=== PATIENT | male | born 1990 | race Caucasian/White ===

== ENCOUNTER 2019-10-24 20:18 | Emergency (ER) | payer SELFPAY ==
[~2019-10-24] VITALS: Ht 185.4 cm; Wt 83.9 kg
[2019-10-24 20:31] VITALS: BP 116/67
[2019-10-24] MEDS ORDERED: CEPH-264 PO (20:45)
--- NOTE | 2019-10-24 20:45 | PHYS DOC ---
Adult General Chief Complaint Chief Complaint: ABSCESS HPI HPI Patient is a 29 year old male who presents with 4 days of a left lower abdomen abscess that is open draining. Patient states he has been pushing and squeezing on it. Patient is educated not to do that. Patient denies fevers or body aches. Patient rates his pain 7 out of 10. States it is tender. (EMBER IZQUIERDO APRN) Review of Systems Review of Systems Constitutional: Denies fever or chills [] Eyes: Denies change in visual acuity, redness, or eye pain [] HENT: Denies nasal congestion or sore throat [] Respiratory: Denies cough or shortness of breath [] Cardiovascular: No additional information not addressed in HPI [] GI: Denies abdominal pain, nausea, vomiting, bloody stools or diarrhea [] : Denies dysuria or hematuria [] Musculoskeletal: Denies back pain or joint pain [] Integument: Abscess on abdomen. Denies rash or skin lesions [] Neurologic: Denies headache, focal weakness or sensory changes [] Endocrine: Denies polyuria or polydipsia [] All other systems were reviewed and found to be within normal limits, except as documented in this note. (EMBER IZQUIERDO APRN) Physical Exam Physical Exam Constitutional: Well developed, well nourished, no acute distress, non-toxic appearance. [] HENT: Normocephalic, atraumatic, bilateral external ears normal, oropharynx moist, no oral exudates, nose normal. [] Eyes: PERRLA, EOMI, conjunctiva normal, no discharge. [] Neck: Normal range of motion, no tenderness, supple, no stridor. [] Cardiovascular:Heart rate regular rhythm, no murmur [] Lungs & Thorax: Bilateral breath sounds clear to auscultation [] Abdomen: Bowel sounds normal, soft, no tenderness, no masses, no pulsatile masses. [] Skin: Warm, dry, Left lower abdomen abscess erythema, no rash. [] Back: No tenderness, no CVA tenderness. [] Extremities: No tenderness, no cyanosis, no clubbing, ROM intact, no edema. [] Neurologic: Alert and oriented X 3, normal motor function, normal sensory function, no focal deficits noted. [] Psychologic: Affect normal, judgement normal, mood normal. [] (EMBER IZQUIERDO APRN) Current Patient Data Vital Signs Vital Signs Date Time Temp Pulse Resp B/P (MAP) Pulse Ox O2 Delivery O2 Flow Rate FiO2 10/24/19 20:31 98.4 88 19 116/67 (83) 97 Room Air 98.4 (EDIE CARDENAS DO) EKG EKG [] (EMBER IZQUIERDO APRN) Radiology/Procedures Radiology/Procedures [] (EMBER IZQUIERDO APRN) Course & Med Decision Making Course & Med Decision Making Abscess is hard, nonraised, draining baseball size oval-shaped abscess that is open. The center is draining purulent fluid. There is no black areas to the wound. Afebrile. vital signs are within normal limits. Alert and oriented. Speaks in full clear sentences. Ambulatory with steady gait. Patient is given a antibiotic and told to follow up here in 48 hours or with his primary care for a wound recheck. The area is outlined with a black skin marker. Patient is stable and non ill appearing. [] (EMBER IZQUIERDO APRN) Dragon Disclaimer Dragon Disclaimer This electronic medical record was generated, in whole or in part, using a voice recognition dictation system. (EMBER IZQUIERDO APRN) Departure Departure Impression: Primary Impression: Abscess Disposition: 01 HOME, SELF-CARE Condition: STABLE Patient Instructions: Abscess Additional Instructions: Follow up with primary care or return to the ED in 48 hours for a wound recheck. Do not squeeze or push on abscess. Use warm compresses 20 minutes on and 20 minutes off. Take medication as prescribed. Scripts Cephalexin (KEFLEX) 500 Mg Capsule 1 CAP PO TID for 10 Days, #30 CAP 0 Refills Prov: EMBER IZQUIERDO APRN 10/24/19 Attending Signature Attending Signature I have reviewed the PA/POULTRY PINNER's note and plan of care. I was available for consultation as needed during the patient's visit in the emergency department. I agree with the clinical impression, plan, and disposition. (EDIE CARDENAS DO) EMBER IZQUIERDO APRN Oct 24, 2019 20:45 EDIE CARDENAS DO Oct 25, 2019 01:01
== END 2019-10-24 21:06 | disposition home or self-care (01) ==
LOC: ER 20:18
DX: K65.1 Peritoneal abscess (principal)
CPT/HCPCS: 99283

== ENCOUNTER 2020-07-13 16:09 | Emergency (ER) | payer SELFPAY ==
[~2020-07-13] VITALS: Ht 185.4 cm; Wt 81.8 kg
[~2020-07-13 16:09] MED LIST: CEPH-264 PO
[2020-07-13] MEDS ORDERED: IV NORMAL SALINE 1000ML BAG 1,000 ML IV ONE (16:30)
--- NOTE | 2020-07-13 16:37 | PHYS DOC ---
Past Medical History Past Medical History: No Pertinent History Past Surgical History: No Surgical History Smoking Status: Former Smoker Alcohol Use: Heavy Drug Use: Marijuana General Adult EDM: Chief Complaint: ABDOMINAL PAIN HPI: HPI: Patient is a 30 year old male who presented to ER today for evaluation of right upper quad abdominal pain for about a week. Patient says he has been drinking heavily daily, however he stopped drinking last week. Patient denies any nausea vomiting, denies any cough or fever. Patient denies any frequency or urinary urgency. Patient denies any history of kidney stone. Review of Systems: Review of Systems: Constitutional: Denies fever or chills. [] Eyes: Denies change in visual acuity. [] HENT: Denies nasal congestion or sore throat. [] Respiratory: Denies cough or shortness of breath. [] Cardiovascular: Denies chest pain or edema. [] GI: Positive for abdominal pain, no nausea vomiting, no diarrhea. : Denies dysuria. [] Musculoskeletal: Denies back pain or joint pain. [] Integument: Denies rash. [] Neurologic: Denies headache, focal weakness or sensory changes. [] Endocrine: Denies polyuria or polydipsia. [] Lymphatic: Denies swollen glands. [] Psychiatric: Denies depression or anxiety. [] Heart Score: Risk Factors: Risk Factors: DM, Current or recent (<one month) smoker, HTN, HLP, family history of CAD, obesity. Risk Scores: Score 0 - 3: 2.5% MACE over next 6 weeks - Discharge Home Score 4 - 6: 20.3% MACE over next 6 weeks - Admit for Clinical Observation Score 7 - 10: 72.7% MACE over next 6 weeks - Early Invasive Strategies Current Medications: Current Medications Medications (Trade) Dose Ordered Sig/Ronald Start Time Stop Time Status Last Admin Dose Admin Sodium Chloride 1,000 ml @ 1,000 mls/hr 1X ONCE 07/13/20 16:30 07/13/20 17:29 UNV Physical Exam: PE: Constitutional: Well developed, well nourished, no acute distress, non-toxic appearance. [] HENT: Normocephalic, atraumatic, bilateral external ears normal, oropharynx moist, no oral exudates, nose normal. [] Eyes: PERRLA, EOMI, conjunctiva normal, no discharge. [] Neck: Normal range of motion, no tenderness, supple, no stridor. [] Cardiovascular:Heart rate regular rhythm, no murmur [] Lungs & Thorax: Bilateral breath sounds clear to auscultation [] Abdomen: Bowel sounds normal, soft, There is tenderness to palpation AT RUQ, NO REBOUND, NO GUARDING, no masses, no pulsatile masses. [] Skin: Warm, dry, no erythema, no rash. [] Back: No tenderness, no CVA tenderness. [] Extremities: No tenderness, no cyanosis, no clubbing, ROM intact, no edema. [] Neurologic: Alert and oriented X 3, normal motor function, normal sensory fun ction, no focal deficits noted. [] Psychologic: Affect normal, judgement normal, mood normal. [] Current Patient Data: Labs: Laboratory Tests Test 07/13/20 16:50 Sodium Level 142 mmol/L Potassium Level 3.8 mmol/L Chloride Level 103 mmol/L Carbon Dioxide Level 33 mmol/L Anion Gap 6 Blood Urea Nitrogen 8 mg/dL Creatinine 0.9 mg/dL Estimated GFR (Cockcroft-Gault) 100.5 BUN/Creatinine Ratio 9 Glucose Level 71 mg/dL Calcium Level 9.1 mg/dL Total Bilirubin 0.3 mg/dL Aspartate Amino Transf (AST/SGOT) 19 U/L Alanine Aminotransferase (ALT/SGPT) 14 U/L Alkaline Phosphatase 74 U/L Total Protein 7.0 g/dL Albumin 3.8 g/dL Albumin/Globulin Ratio 1.2 Lipase 145 U/L Ethyl Alcohol Level < 10 mg/dL Current Medications Medications (Trade) Dose Ordered Sig/Ronald Route PRN Reason Start Time Stop Time Status Last Admin Dose Admin Sodium Chloride 1,000 ml @ 1,000 mls/hr 1X ONCE IV 07/13/20 16:30 07/13/20 17:29 DC 07/13/20 16:30 Iohexol (Omnipaque 300 Mg/ml) 75 ml 1X ONCE IV 07/13/20 18:00 07/13/20 18:01 DC Info (CONTRAST GIVEN -- Rx MONITORING) 1 each PRN DAILY PRN MC SEE COMMENTS 07/13/20 18:00 07/15/20 17:59 EKG: EKG: [] Radiology/Procedures: Radiology/Procedures: [][facility] [address] [place] [address] IMAGING REPORT Signed PATIENT: ALEXA ANDREW ACCOUNT: [id number] : 1990 LOCATION: ER AGE: 30 SEX: M EXAM STATUS: PRE ER ORD. PHYSICIAN: IVON RIZO DO REASON: RUQ ABDOMINAL PAIN PROCEDURE: ABDOMEN LTD INDICATION : Reason: RUQ ABDOMINAL PAIN / Spl. Instructions: / History: COMPARISON: None TECHNIQUE: Multiple ultrasound images obtained through the abdomen in grayscale and color. FINDINGS: Liver: Borderline echogenic Gallbladder: Contracted appearance. IVC: Partially distended at level of liver. Common Bile Duct: Not dilated. Pancreas: Limited evaluation secondary to bowel gas obscuring. Right Kidney: No hydronephrosis. IMPRESSION: * Gallbladder is contracted without common bile duct dilation or definitive stones but there is some limitation of the gallbladder secondary to contraction Electronically signed by: Juan Simpson MD (07/13/2020 5:09 PM) [id number] DICTATED and SIGNED BY: JUAN SIMPSON MD DATE: 07/13/20 1709 Course & Med Decision Making: Course & Med Decision Making Pertinent Labs and Imaging studies reviewed. (See chart for details) Patient is a 30-year-old male coming in with right-sided abdominal pain, will come back normal, ultrasound of Gallbladder come back normal as well, endorsed patient to Dr. Mclain at shift change, pending CT scan Dragon Disclaimer: Albina Disclaimer: This electronic medical record was generated, in whole or in part, using a voice recognition dictation system. Departure Departure Impression: Primary Impression: Abdominal pain Disposition: 01 HOME, SELF-CARE Condition: IMPROVED Referrals: NO PCP (PCP) Justicifation of Admission Dx: Justifications for Admission: Justification of Admission Dx: N/A IVON RIZO DO Jul 13, 2020 16:37
--- NOTE | 2020-07-13 17:12 | RAD ---
INDICATION : Reason: RUQ ABDOMINAL PAIN / Spl. Instructions: / History: COMPARISON: None TECHNIQUE: Multiple ultrasound images obtained through the abdomen in grayscale and color. FINDINGS: Liver: Borderline echogenic Gallbladder: Contracted appearance. IVC: Partially distended at level of liver. Common Bile Duct: Not dilated. Pancreas: Limited evaluation secondary to bowel gas obscuring. Right Kidney: No hydronephrosis. IMPRESSION: * Gallbladder is contracted without common bile duct dilation or definitive stones but there is some limitation of the gallbladder secondary to contraction Electronically signed by: Greg Kaye MD (07/13/2020 5:09 PM) [id number]
[2020-07-13 17:52] LABS: ALBUMIN 3.8 g/dL (3.4-5.0); ALBUMIN/GLOBULIN RATIO 1.2 (1.0-1.7); CALCIUM 9.1 mg/dL (8.5-10.1); CREATININE 0.9 mg/dL (0.7-1.3); GFR 100.5; POTASSIUM 3.8 mmol/L (3.5-5.1); TOTAL BILIRUBIN 0.3 mg/dL (0.2-1.0)
[2020-07-13] MEDS ORDERED: IOHEXOL 300 MG/ML 100ML VIAL. IV ONE (18:00)
[2020-07-13] MEDS ORDERED: CONTRAST GIVEN. MC PRN (18:00)
[2020-07-13 18:01] VITALS: BP 119/79
[2020-07-13 18:15] LABS: BACTERIA,URINE 0 /HPF (0-FEW); BILIRUBIN,URINE NEGATIVE (NEG); CLARITY,URINE CLEAR; COLOR,URINE YELLOW; NITRITE,URINE NEGATIVE (NEG); PROTEIN,URINE NEGATIVE (NEG-TRACE); UROBILINOGEN,URINE 0.2 mg/dL (0.2 mg/dL)
[2020-07-13 18:16] LABS: SQUAMOUS EPITHELIAL CELL,UR OCC /LPF
[2020-07-13 18:24] LABS: HEMATOCRIT 38.3 % (39.0-53.0); HEMOGLOBIN 12.9 g/dL (13.0-17.5); RED BLOOD COUNT 4.28 x10^6/uL (4.30-5.70); RED CELL DISTRIBUTION WIDTH 13.1 % (11.5-14.5); WHITE BLOOD COUNT 7.3 x10^3/uL (4.0-11.0)
[2020-07-13 18:25] LABS: BASO # 0.1 x10^3/uL (0.0-0.2); EOS # 0.1 x10^3/uL (0.0-0.7)
--- NOTE | 2020-07-13 18:36 | RAD ---
EXAM: CT Abdomen and Pelvis with IV contrast CLINICAL HISTORY: right side abdominal pain for 1 week COMPARISON: none TECHNIQUE: Helical CT of the abdomen and pelvis was performed following the administration of IV contrast. Axial, coronal and sagittal reformatted images were generated. ---PQRS compliance statement - One or more of the following individualized dose reduction techniques were utilized for this study: 1. Automated exposure control 2. Adjustment of the mA and/or kV according to patient size 3. Use of iterative reconstruction technique--- FINDINGS: Examination is limited by extensive motion artifact. Lower chest: Linear opacities in the lower lobes likely scarring/atelectasis. Abdomen and pelvis: Liver and biliary system: No focal liver lesion. Gallbladder is normal. No biliary ductal dilatation. Spleen: Unremarkable Pancreas: Unremarkable Adrenal glands: Unremarkable Kidneys: Symmetric nephrograms. No focal renal lesion. No hydronephrosis. No hydroureter. Lymph nodes/retroperitoneum: Mildly prominent retroperitoneal lymph nodes are seen measuring up to 9 mm short axis however accurate measurements limited given motion artifact. Vessels: Aorta is grossly normal in caliber. Bowel/Peritoneal cavity: Moderate colonic stool content is seen. No small or large bowel dilatation. No bowel obstruction. Appendix is not seen however no significant right lower quadrant/pericecal inflammatory changes are seen. No abdominal or pelvic ascites. Abdominal wall: Unremarkable Bladder: Unremarkable Bones: No aggressive osseous lesion is seen. Degenerative changes of the spine are seen. IMPRESSION: 1. Examination is limited by motion artifact. 2. Moderate colonic stool content is seen. No bowel obstruction. 3. Appendix is not seen however no significant right lower quadrant inflammatory change. 4. Mildly prominent retroperitoneal lymph nodes may be reactive. Electronically signed by: Greg Hoff MD (07/13/2020 6:33 PM) DORIE
== END 2020-07-13 19:25 | disposition home or self-care (01) ==
LOC: ER 16:09
DX: R10.11 Right upper quadrant pain (principal); F12.90 Cannabis use, unspecified, uncomplicated; F10.10 Alcohol abuse, uncomplicated; Z87.891 Personal history of nicotine dependence
CPT/HCPCS: 36415; 74177; 76705; 80053; 81001; 83690; 85025; 96360; 99285; G0480; J7030; Q9967

== ENCOUNTER 2021-04-29 18:45 | Emergency (ER) | payer SELFPAY ==
[~2021-04-29] VITALS: Ht 185.4 cm; Wt 84.1 kg
[2021-04-29 19:48] VITALS: BP 116/65
[2021-04-29] MEDS ORDERED: NAPROXEN 500 MG TABLET PO ONE (20:30)
[2021-04-29] MEDS ORDERED: NAPR-514 PO (20:38)
[2021-04-29] MEDS ORDERED: NEOM28.43 TP (20:38)
--- NOTE | 2021-04-29 20:39 | ED.ADGEN ---
Past Medical History Past Medical History: Schizophrenia Additional Past Medical Histor: Borderline Personality Disorder Past Surgical History: No Surgical History Smoking Status: Former Smoker Alcohol Use: Heavy Drug Use: Marijuana General Adult EDM: Chief Complaint: SUNBURN HPI: HPI: Patient is a 31 year old male who presents to the emergency department with reports of a sunburn to the right side of his chest and both of his arms. Patient states he fell asleep in the sun and woke up with a sunburn 2 days ago. He denies any drainage or blistering of the affected sites. Patient states he tried drinking a pint of vodka earlier today to relieve the pain but reports no relief. Patient states he has also tried applying aloe vera to the sites. Patient states he is currently homeless and is not able to afford [id number] medications and lotions. Patient denies any fever, cough, body aches, nausea, vomiting, diarrhea, headache, abdominal pain, this, tingling, or weakness. He currently rates the pain a 10 out of 10 on the pain scale he states the burn pain is the worst on his chest. He denies any alleviating or exacerbating factors and reports the pain is constant. Review of Systems: Review of Systems: Complete ROS is negative unless otherwise noted in HPI. Current Medications: Current Medications Medications (Trade) Dose Ordered Sig/[facility] Start Time Stop Time Status Last Admin Dose Admin Naproxen (Naprosyn) 500 mg 1X ONCE 04/29/21 20:30 04/29/21 20:31 DC 04/29/21 20:05 500 MG Allergies: Allergies: Allergies Coded Allergies Type Severity Reaction Last Updated Verified No Known Drug Allergies 07/13/20 No Physical Exam: PE: See Above Constitutional: Well developed, well nourished, no acute distress, non-toxic appearance. [] HENT: Normocephalic, atraumatic, bilateral external ears normal, nose normal. [] Eyes: PERRLA, EOMI, conjunctiva normal, no discharge. [] Neck: Normal range of motion, no stridor. [] Cardiovascular:Heart rate regular rhythm Lungs & Thorax: Respirations even and unlabored, no retractions, no respiratory distress Abdomen: soft, no tenderness Skin: Warm, dry; first-degree sunburn to right side of patient's chest and bilateral forearms, no blistering, cap refill less than 2 seconds, sensation intact, no drainage Extremities: No cyanosis, ROM intact, no edema. [] Neurologic: Alert and oriented X 3, normal motor, normal sensory, no focal deficits noted. [] Psychologic: Affect normal, judgement normal, mood normal. [] Current Patient Data: Vital Signs: Vital Signs Date Time Temp Pulse Resp B/P (MAP) Pulse Ox O2 Delivery O2 Flow Rate FiO2 04/29/21 19:48 97.9 68 13 116/65 (82) 97 Room Air 97.9 EKG: EKG: [] Heart Score: C/O Chest Pain: No Risk Scores: Score 0 - 3: 2.5% MACE over next 6 weeks - Discharge Home Score 4 - 6: 20.3% MACE over next 6 weeks - Admit for Clinical Observation Score 7 - 10: 72.7% MACE over next 6 weeks - Early Invasive Strategies Radiology/Procedures: Radiology/Procedures: [] Course & Med Decision Making: Course & Med Decision Making Pertinent Labs and Imaging studies reviewed. (See chart for details) [] Dragon Disclaimer: Dragon Disclaimer: This electronic medical record was generated, in whole or in part, using a voice recognition dictation system. Departure Departure Impression: Primary Impression: Sunburn of first degree Disposition: HOME / SELF CARE / HOMELESS Condition: STABLE Referrals: NO PCP (PCP) Patient Instructions: Sunburn, [id number] Additional Instructions: Recommend application of moisturizing lotion twice daily and as needed. Fill the prescription and use as directed. Return to the ER if symptoms worsen or fever develops. Scripts Naproxen (NAPROXEN) 500 Mg Tablet 1 TAB PO BID PRN for PAIN for 10 Days, #20 TAB 0 Refills Prov: VAZQUEZ GOMES W[employer]DROBE CONSULTANT 04/29/21 Neomycn/Baci Zn/Pmyx Bs/Pramox (TRIPLE ANTIBIOTIC PLUS OINTMNT) 28.4 Gm Oint...g. 28.4 GM TP BID for 5 Days, #1 MISC 0 Refills Prov: VAZQUEZ GOMES W[employer] CONSULTANT 04/29/21 VAZQUEZ GOMES W[employer] CONSULTANT Apr 29, 2021 20:39
== END 2021-04-29 20:52 | disposition home or self-care (01) ==
LOC: ER 18:45
DX: L55.0 Sunburn of first degree (principal); Z59.0 Homelessness; F10.20 Alcohol dependence, uncomplicated; Y90.9 Presence of alcohol in blood, level not specified; F20.9 Schizophrenia, unspecified; Z87.891 Personal history of nicotine dependence
CPT/HCPCS: 99283